=== PATIENT | male | born 1960 | race Caucasian/White ===

== ENCOUNTER 2023-08-21 13:33 | Emergency (ER) | payer OTHER ==
[~2023-08-21] VITALS: Ht 182.9 cm; Wt 95.5 kg
[2023-08-21 13:43] VITALS: BP 149/94; TEMP 98.3
[2023-08-21 15:47] VITALS: PULSE 66
[2023-08-21] MEDS ORDERED: ZITHROMAX Z PA250 MG PO ×2 (15:54→16:40)
[2023-08-21] MEDS ORDERED: AMOXICILLIN 8751 TAB PO ×2 (15:54→16:40)
== END 2023-08-21 15:47 | disposition home or self-care (01) ==
LOC: COL.ER 13:33
DX: J18.9 Pneumonia, unspecified organism (principal)